=== PATIENT | male | born 1945 | race Caucasian/White ===

== ENCOUNTER → 2023-12-12 10:52 | Outpatient (REF) | payer OTHER, SELFPAY | LOC: RAD 10:52 | PROVIDERS: ATTENDING PHYSICIAN Specialist; FAMILY PHYSICIAN Family Medicine | DX: N32.89 Other specified disorders of bladder (principal) | CPT/HCPCS: 74178; Q9967 ==

== ENCOUNTER 2024-01-08 06:10 | Day surgery (SDC) | payer OTHER, SELFPAY ==
[2023-12-25 08:35] VITALS: BMI 32.4
[2023-12-25 10:18] LABS: Urine Albumin 1+ (Neg - Trace); Urine Bilirubin Negative (Negative); Urine Character Clear (Clear); Urine Color Yellow; Urine Glucose Negative (Negative); Urine Ketone Negative (Negative); Urine Leukocyte Trace (Negative); Urine Nitrite Negative (Negative); Urine Occult Blood 4+ (Negative); Urine Urobilinogen Negative (Neg - 1+)
[2023-12-25 10:25] LABS: Hematocrit 43.9 % (39.0-52.0); Mean Corp Hgb Conc. 34.2 g/dL (33.0-37.0); Mean Corpuscular Hgb 30.5 pg (27.0-31.0); Mean Corpuscular Volume 89.4 fL (80.0-94.0); Mean Platelet Volume 9.8 fL (7.4-10.4); Platelet Count 255 10^3/uL (130-400); Red Blood Cell Count 4.91 10^6/uL (4.70-6.10); Red Cell Dist. Width 12.5 % (11.5-14.5); White Blood Cell Count 6.3 10^3/uL (4.8-10.8)
[2023-12-25 10:38] LABS: PT 13.2 Sec (11.4-14.6)
[2023-12-25 10:41] LABS: Blood Urea Nitrogen 30 mg/dl (9-20); Calcium 9.7 mg/dl (8.4-10.2); Carbon Dioxide 28 mmol/L (22-30); Chloride 102 mmol/L (98-107); Estimated Creatinine Clearance 54 ml/min; Glucose 93 mg/dl (70-99); Sodium 136 mmol/L (135-145); eGFR > 60.00
[2023-12-25 11:43] LABS: Urine Squamous Cell 0-2 /LPF (Few)
[2023-12-25 11:45] LABS: Urine Bacteria Moderate (Negative); Urine Red Blood Cell 60-70 /HPF (0-2); Urine White Cell 16-20 /HPF (0-5)
--- NOTE | 2024-01-01 14:48 | PTCARENOTE ---
Abnormal Urine WBC's on 12/24. Reported to Narcisa at Dr. Patel' office.
[2024-01-08] VITALS (10 sets, daily range): BP systolic 130–157; BP diastolic 75–89; BMI 32.4
[2024-01-08] MEDS: NORMOSOL-R 1000 IV (06:57)
[2024-01-08] MEDS: SYRINGE NON-PUMP 50 ML IRRIG (09:20)
[2024-01-08] MEDS: SYRINGE NON-PUMP 50 MG IRRIG (09:20)
[2024-01-08] MEDS: VALIUM 5 MG PO (11:00)
== END 2024-01-08 11:45 | disposition home or self-care (01) ==
LOC: SDS 06:10
PROVIDERS: ATTENDING PHYSICIAN Specialist; FAMILY PHYSICIAN Family Medicine
DX: C67.3 Malignant neoplasm of anterior wall of bladder (principal)
CPT/HCPCS: 52240; 88307; 36415; 80048; 81003; 81015; 85027; 85610; 85730; 87070; 93005; J9201

== ENCOUNTER → 2024-06-25 12:17 | Outpatient (REF) | payer OTHER, SELFPAY | LOC: RAD 12:17 | PROVIDERS: ATTENDING PHYSICIAN Specialist; FAMILY PHYSICIAN Family Medicine | DX: N32.89 Other specified disorders of bladder (principal) | CPT/HCPCS: 74178; Q9967 ==

== ENCOUNTER 2024-07-13 06:36 | Day surgery (SDC) | payer OTHER, SELFPAY ==
[2024-07-05 08:34] VITALS: BMI 33.8
[2024-07-05 10:48] LABS: Hematocrit 44.3 % (39.0-52.0); Hemoglobin 15.5 g/dL (13.0-18.0); Mean Corpuscular Hgb 31.9 pg (27.0-31.0); Mean Corpuscular Volume 91.2 fL (80.0-94.0); Mean Platelet Volume 9.7 fL (7.4-10.4); Platelet Count 242 10^3/uL (130-400); Red Blood Cell Count 4.86 10^6/uL (4.70-6.10); Red Cell Dist. Width 12.3 % (11.5-14.5); White Blood Cell Count 6.6 10^3/uL (4.8-10.8)
[2024-07-05 11:17] LABS: Blood Urea Nitrogen 35 mg/dl (9-20); Calcium 9.8 mg/dl (8.4-10.2); Carbon Dioxide 31 mmol/L (22-30); Chloride 100 mmol/L (98-107); Estimated Creatinine Clearance 50 ml/min; Glucose 100 mg/dl (70-99); Sodium 141 mmol/L (135-145); eGFR > 60.00
[2024-07-13] VITALS (9 sets, daily range): BP systolic 152–170; BP diastolic 77–96; BMI 33.8
[2024-07-13] MEDS: NORMOSOL-R/PLASMALYTE-A 1000 IV (09:23)
[2024-07-13] MEDS: Pyridium 200 MG PO (09:23)
[2024-07-13] MEDS: SYRINGE NON-PUMP 50 MG IRRIG (13:13)
[2024-07-13] MEDS: SYRINGE NON-PUMP 50 ML IRRIG (13:13)
== END 2024-07-13 14:44 | disposition home or self-care (01) ==
LOC: SDS 06:36
PROVIDERS: ATTENDING PHYSICIAN Specialist; FAMILY PHYSICIAN Family Medicine
DX: C67.9 Malignant neoplasm of bladder, unspecified (principal)
CPT/HCPCS: 52235; 88307; 36415; 80048; 85027; 87070; 93005